=== PATIENT | male | born 2000 | race Caucasian/White ===

== ENCOUNTER 2018-08-22 00:13 | Emergency (ER) | payer BC, OTHER ==
[2018-08-22 00:13] VITALS: O2SAT 100
[2018-08-22 00:20] VITALS: TEMP 97.3
[2018-08-22] MEDS ORDERED: ONDANSETRON 4 MG ODT BU ONE (00:54)
[2018-08-22] MEDS ORDERED: ONDANSETRON 4 MG ODT ONE (00:57)
[2018-08-22 01:18] LABS: BASOPHILS % (AUTO) 1 % (0-3); EOSINOPHILS % (AUTO) 2 % (0-9); HEMATOCRIT 45 % (39-53); MEAN CORPUSCULAR HEMOGLOBIN 31.5 pg (27.0-32.0); MEAN CORPUSCULAR HGB CONC 35.5 gm/dl (32.0-36.0); MEAN CORPUSCULAR VOLUME 89 fL (80-100); NEUTROPHILS % (AUTO) 56.1 % (37-80)
[2018-08-22 01:32] LABS: ALBUMIN 4.3 gm/dl (3.4-5.0); BILIRUBIN,TOTAL 0.8 mg/dl (0.2-1.0); CALCIUM 8.3 mg/dl (8.5-10.1); CARBON DIOXIDE 30.3 mEq/L (21-32); CREATININE 0.74 mg/dl (0.80-1.30); TOTAL PROTEIN 7.2 gm/dl (6.4-8.2)
[2018-08-22] MEDS ORDERED: MAGNESIUM CITRATE SOL PO PRN (01:43)
[2018-08-22] MEDS ORDERED: MAGNESIUM CITRATE SOL ONE (01:46)
[2018-08-22 01:54] VITALS: BP 136/78; PULSE 67; RESP 18
== END 2018-08-22 01:55 | disposition home or self-care (01) ==
LOC: ED 00:13
DX: K59.01 Slow transit constipation (principal)
CPT/HCPCS: 36415; 74019; 80053; 85025; 99282; 99283; A9270-GY